=== PATIENT | female | born 1990 | race Caucasian/White ===

== ENCOUNTER 2017-05-31 09:21 | Emergency (ER) | payer MEDICAID | END 2017-05-31 11:50 | disposition home or self-care (01) | LOC: D.ER 09:21 | DX: S39.012A Strain of muscle, fascia and tendon of lower back, initial encounter (principal); V49.9XXA Car occupant (driver) (passenger) injured in unspecified traffic accident, initial encounter; Y93.89 Activity, other specified; Y92.410 Unspecified street and highway as the place of occurrence of the external cause; Z85.850 Personal history of malignant neoplasm of thyroid ==